=== PATIENT | female | born 1990 | race Native Hawaiian/Other Pacific Islander ===

== ENCOUNTER 2017-08-25 15:34 | Emergency (ER) | payer OTHER ==
[2017-08-25 15:37] VITALS: TEMP 97.6; O2SAT 99
--- NOTE | 2017-08-25 16:05 | ED PDOC ---
HPI: Psych/Substance Abuse Time Seen by Provider: 08/25/17 15:47 Chief Complaint (Nursing): Psychiatric Evaluation Chief Complaint (Provider): Im depressed History Per: Patient History/Exam Limitations: no limitations Onset/Duration Of Symptoms: Days (1-2 months), Gradual Current Symptoms Are (Timing): Still Present Suicide/Self Injury Attempted (Context): None Modifying Factor(s): None Severity: Severe Associated Symptoms: Depression, Suicidal Thoughts, Suicidal Plan Involuntary Hold By: Emergency Physician Additional Complaint(s): 27yo female c/o worsening feelings of depression over last several months since having a termination of in april. Now states having thoughts of self-harm. Denies suicide attempt, alcohol or drug use. Denies prior history of depression. Past Medical History Reviewed: Historical Data, Nursing Documentation, Vital Signs Vital Signs: Last Vital Signs Temp 97.6 F 08/25/17 15:35 Pulse 71 08/25/17 15:35 Resp 16 08/25/17 15:35 BP 131/90 08/25/17 15:35 Pulse Ox 99 08/25/17 15:35 - Medical History PMH: No Chronic Diseases - Surgical History Other surgeries: TOP - Family History Family History: States: Unknown Family Hx - Living Arrangements Living Arrangements: With Family - Social History Current smoker - smoking cessation education provided: No Alcohol: None - Allergies Allergies/Adverse Reactions: Allergies Allergy/AdvReac Type Severity Reaction Status Date / Time No Known Allergies Allergy Verified 08/25/17 15:35 Review of Systems Constitutional: Negative for: Fever Cardiovascular: Negative for: Chest Pain Respiratory: Negative for: Cough, Shortness of Breath Gastrointestinal: Negative for: Nausea, Abdominal Pain Genitourinary Female: Negative for: Dysuria Musculoskeletal: Negative for: Neck Pain, Back Pain Skin: Negative for: Rash, Bruising Neurological: Negative for: Weakness, Altered Mental Status, Dizziness Psych: Positive for: Depression, Suicidal ideation. Negative for: Psychosis, Withdrawal Physical Exam - Reviewed Nursing Documentation Reviewed: Yes Vital Signs Reviewed: Yes - Physical Exam Appears: Positive for: Well, Non-toxic, No Acute Distress Head Exam: Positive for: ATRAUMATIC, NORMAL INSPECTION, NORMOCEPHALIC Skin: Positive for: Normal Color, Warm, DRY Eye Exam: Positive for: EOMI, Normal appearance, PERRL ENT: Positive for: Normal ENT Inspection Neck: Positive for: Normal, Painless ROM Cardiovascular/Chest: Positive for: Regular Rate, Rhythm Respiratory: Positive for: CNT, Normal Breath Sounds Gastrointestinal/Abdominal: Positive for: Normal Exam, Soft Back: Positive for: Normal Inspection Extremity: Positive for: Normal ROM Neurologic/Psych: Positive for: Alert, Oriented, Mood/Affect (flat affect, fair insight). Negative for: Facial Droop - ECG O2 Sat by Pulse Oximetry: 99 Medical Decision Making Medical Decision Makin:1 obs initiated Preg status checked, crisis eval requested crisis eval performed, patient was offered voluntary admission but declined. Disposition - Clinical Impression Clinical Impression: Depressive disorder - Patient ED Disposition Is Patient to be Admitted: No Counseled Patient/Family Regarding: Studies Performed, Diagnosis, Need For Followup - Disposition Referrals: [facility] [Outside] Disposition: Routine/Home Disposition Time: 19:01 Condition: STABLE Additional Instructions: Followup with appointment as scheduled for psychiatrist. Return to ER for any worsening feelings of depression or thoughts of self-harm. Instructions: Depression, Adult (DC), Suicide Prevention Forms: [employer] (I[place]ic)
[2017-08-25 18:42] LABS: BARBITURATES, UR NEGATIVE (NEGATIVE); BENZODIAZEPINES, UR NEGATIVE (NEGATIVE); OPIATES, UR NEGATIVE (NEGATIVE); PHENCYCLIDINE, UR NEGATIVE (NEGATIVE)
[2017-08-25 18:44] LABS: SQUAMOUS EPITHIAL 2 /hpf (0-5); URINE BACTERIA OCC (<OCC); URINE BILIRUBIN NEGATIVE (NEGATIVE); URINE BLOOD SMALL (NEGATIVE); URINE CALCIUM OXALATE CRYSTALS OCC /hpf (<OCC); URINE CLARITY CLOUDY (Clear); URINE COLOR YELLOW (YELLOW); URINE GLUCOSE (UA) NEG (Normal); URINE LEUKOCYTE ESTERASE MOD Leu/uL (Negative); URINE PROTEIN 100 mg/dL (NEGATIVE)
[2017-08-25 20:42] VITALS: BP 101/63; PULSE 76; RESP 18
== END 2017-08-25 20:45 | disposition home or self-care (01) ==
LOC: H.ER 15:34
DX: F32.9 Major depressive disorder, single episode, unspecified (principal); Z00.8 Encounter for other general examination